=== PATIENT | male | born 1975 | race Caucasian/White ===

== ENCOUNTER → 2017-07-19 | Outpatient (CLI) | payer OTHER | LOC: RAD 08:15 | DX: M79.641 Pain in right hand (principal); W19.XXXA Unspecified fall, initial encounter | CPT/HCPCS: 73130 ==

== ENCOUNTER → 2021-01-09 | Outpatient (CLI) | payer OTHER | LOC: SLEEP 14:47 | DX: Z53.21 Procedure and treatment not carried out due to patient leaving prior to being seen by health care provider (principal) ==

== ENCOUNTER → 2021-02-26 | Outpatient (CLI) | payer OTHER | LOC: SLEEP 10:42 | DX: G47.33 Obstructive sleep apnea (adult) (pediatric) (principal) | CPT/HCPCS: 95811 ==

== ENCOUNTER 2022-06-12 10:19 | Emergency (ER) | payer SELFPAY ==
[2022-06-12] MEDS ORDERED: IBUPROFEN600 MG PO (13:32)
== END 2022-06-12 13:44 | disposition home or self-care (01) ==
LOC: ER1 10:19
DX: S93.114A Dislocation of interphalangeal joint of right lesser toe(s), initial encounter (principal); Z88.1 Allergy status to other antibiotic agents; W19.XXXA Unspecified fall, initial encounter
CPT/HCPCS: 28660; 73630; 96374; 96375; 99283; J2270; J2405